=== PATIENT | female | born 1985 | race Caucasian/White ===

== ENCOUNTER 2021-01-13 10:02 | Emergency (ER) | payer BC, SELFPAY ==
--- NOTE | ~2021-01-13 | XR_ITS ---
EXAMINATION: XR finger 1st RT min 2V EXAM DATE: 01/13/2021 10:17 INDICATION: shut in car door last night . TECHNIQUE: Right 1st finger frontal, lateral and oblique projections obtained and reviewed. There is no prior study for comparison. FINDINGS: There are no acute right 1st finger fractures or dislocations identified. There is no subc utaneous gas. The soft tissue is unremarkable. There are no radiopaque foreign bodies. IMPRESSION: No acute osseous findings. Reviewed, dictated and finalized at location [facility]. IMPRESSION: No acute osseous findings.
[2021-01-13 10:10] VITALS: BP 132/85; PULSE 82; RESP 16; TEMP 37; O2SAT 100
--- NOTE | 2021-01-13 10:12 | ED.UPPEXIN ---
HPI - Extremity Injury (Upper) General Chief Complaint: Extremity Injury, Upper Stated Complaint: INJURED FINGER Time Seen by Provider: 01/13/21 10:13 Source: patient, family and RN notes reviewed Limitations: no limitations History of Present Illness HPI narrative: 35-year-old female accompanied by [facility] with complaints of injury to her right thumb yesterday evening. She accidentally shut her thumb in the car door with some swelling noted to the distal aspect of her right thumb. some bruising noted to nail bed but not extensive.Patient has full movement of her right thumb with no tingling or numbness of her right thumb or other fingers, strong right radial pulse. Related Data Home Medications Medication Instructions Recorded Confirmed No Home Medications 01/13/21 01/13/21 Allergies Allergy/AdvReac Type Severity Reaction Status Date / Time No Known Allergies Allergy Unverified 08/31/11 15:39 Review of Systems Review of Systems: CONSTITUTIONAL: Denies fever, chills, or sweats. EYES: Denies visual changes, redness, or discharge. ENT: Denies rhinorrhea, congestion, sore throat, or otalgia. CARDIOVASCULAR: Denies chest pain, palpitations, or edema. RESPIRATORY: Denies cough or dyspnea. GASTROINTESTINAL: Denies abdominal pain, nausea, vomiting, or diarrhea. GENITOURINARY: Denies dysuria or hematuria. SKIN: Denies rash or itching. MUSCULOSKELETAL: Denies back pain, pain to right thumb from injury, or myalgia. NEUROLOGIC: Denies headache, numbness, or weakness. PSYCHIATRIC: Denies anxiety or depression. All systems reviewed & are unremarkable except as noted in HPI and below PMFSH Comments At time of signature, agree with nursing past medical, surgical, social and family history. There is no relevant family history pertinent to the presenting complaint Exam Narrative: GENERAL: Well-appearing, well-nourished, and in no acute distress. HEAD: Normocephalic, atraumatic. EYES: PERRLA and EOMI. ENT: Nares clear, no rhinorrhea or epistaxis. Mucous membranes moist. NECK: Supple.no lymphadenopathy CHEST: Clear to auscultation. No respiratory distress.SAO2 100% on room air HEART: Regular rate and rhythm. No murmur heard. Normal peripheral pulses. ABDOMEN: Soft, nontender, nondistended, normal active bowel sounds. EXTREMITIES: Normal range of motion. No edema,exception noted to right thumb which is painful with some mild swelling distal thumb region, some bruising on nail bed but not extensive.patyient has full mobility sensation and circulation to right hand SKIN: Warm, dry, no rash. NEURO: No focal deficits. Alert and oriented x3. Course Vital Signs Vital signs: Vital Signs Temperature 37.0 C 01/13/21 10:10 Pulse Rate 82 01/13/21 10:10 Respiratory Rate 16 01/13/21 10:10 Blood Pressure 132/85 01/13/21 10:10 Pulse Oximetry 100 01/13/21 10:10 Temperature 37.0 C 01/13/21 10:10 Pulse Rate 82 01/13/21 10:10 Respiratory Rate 16 01/13/21 10:10 Blood Pressure 132/85 01/13/21 10:10 Pulse Oximetry 100 01/13/21 10:10 MDM - Extremity Injury (Upper) Differential Diagnosis Differential diagnosis: Likely finger sprain and other (thumb injury, right thumb contusion,) Medical Records Attestation: I reviewed the patient's medical records. Imaging Data Attestation: I personally reviewed and interpreted this imaging study as follows: My impression: no fracture noted Radiologist[facility] [place] [address] [phone] XRay ReportSigned Patient: Kita Cevallos LDOB: 1985MR#: [id number]/Sex: 35 / FAcct:[id number]: EXPGLEN ADM Date: 01/13/21Attending Dr: Ordering Physician: Supriya Al APN Date of Service: 01/13/21 Procedure(s): XR finger 1st RT min 2V Accession Number(s): [id number] cc: Amadeo, Ham MAK (Khengwai); Supriya Al APN~ EXAMINATION: XR finger 1st RT min 2V EXAM DATE:
== END 2021-01-13 10:40 | disposition home or self-care (01) ==
PROVIDERS: Emergency Provider Registered Nurse; PCP Internal Medicine
DX: S60.011A Contusion of right thumb without damage to nail, initial encounter (principal); W23.0XXA Caught, crushed, jammed, or pinched between moving objects, initial encounter
CPT/HCPCS: 73140; 99203; G0463

== ENCOUNTER 2022-11-18 12:49 | Emergency (ER) | payer BC, SELFPAY ==
--- NOTE | ~2022-11-18 | CT_ITS ---
CT of the Abdomen and Pelvis: Indication: Abdominal pain Technique: 2.5 mm axial scans were obtained through the abdomen and pelvis following intravenous adm inistration of 100 cc of Omnipaque 350. Dose reduction technique was used on this scan by utilizing a utomated exposure control and iterative reconstruction technique. The dose-length product (DLP) was 2 31.58 mGy-cm. Findings: Scans through the lung bases are unremarkable. The liver, spleen, pancreas, gallbladder, adrenals and kidneys are within normal limits. No evidence of aortic aneurysm. No lymphadenopathy. No bowel obstruction or bowel wall thickening. Appendix not clearly visualized. Images through the pelvis were performed. Urinary bladder unremarkable. No definite adnexal mass seen . Small amount of pelvic ascites. Impression: Small amount of pelvic ascites, nonspecific. No other definite abnormality identified. Clinical corre lation is required as the cause and/or clinical significance of this fluid. Reviewed, dictated and finalized at [facility]. Impression: Small amount of pelvic ascites, nonspecific. No other definite abnormality iden tified. Clinical correlation is required as the cause and/or clinical significa nce of this fluid.
--- NOTE | ~2022-11-18 | US_ITS ---
US pelvic complete DATE: 11/18/2022 15:52 INDICATION: Lower abdominal pain. Rule out torsion. TECHNIQUE: Real-time imaging via transabdominal approach, color flow imaging COMPARISON: 11/18/2022 CT abdomen pelvis FINDINGS: There is measures approximately 10.2 cm height, 4 cm AP dimension. The central endometrial echo complex measures approximately 7.8 mm AP dimension. Right ovary measures 2.5 x 2.0 x 1.6 cm, with vascular flow. Left ovary measures 2.9 x 2.3 x 2.1 cm, with vascular flow. Bilateral ovarian follicles are noted. There is a septated approximately 1.6 x 1.[address] No ovarian torsion is detected. No abnormal free pelvic fluid collection is noted. IMPRESSION: No ovarian torsion is detected Reviewed, dictated and finalized at [facility]. Reviewed, dictated and finalized at [facility].
[2022-11-18 13:01] VITALS: BP 144/89; PULSE 89; RESP 18; TEMP 36.3; O2SAT 100
[2022-11-18 13:31] LABS: Basophils Percent Auto 0.8 % (0.2-1.2); Eosinophils Absolute Auto 0.1 K/mm3 (0-0.3); Eosinophils Percent Auto 2.1 % (0-4.4); Hematocrit 38.6 % (37.0-47.0); Hemoglobin 12.7 g/dL (12.0-15.0); Immature Granulocyte Absolute 0.01 K/mm3 (0.00-0.031); Immature Granulocyte Percent A 0.2 % (0-0.5); Lymphocytes Absolute Auto 0.95 K/mm3 (0.9-3.2); Lymphocytes Percent Auto 19.6 % (18.3-44.2); Mean Corpuscular HGB Conc 32.9 g/dl (32-36); Mean Corpuscular Hemoglobin 31.4 pg (26-34); Mean Corpuscular Volume 95.3 fl (80-100); Mean Platelet Volume 9.5 fl (7.4-10.4); Monocytes Absolute Auto 0.3 K/mm3 (0.1-0.6); Neutrophils Absolute Auto 3.4 K/mm3 (1.3-6.7); Neutrophils Percent Auto 70.3 % (45.5-73.1); Platelet Count Result 223 k/mm3 (150-375); Red Blood Count 4.05 M/mm3 (4.2-5.4); Red Cell Distribution Width 12.6 % (11.5-14.5); White Blood Count 4.9 K/mm3 (4.5-10.0)
[2022-11-18 13:32] LABS: Appearance Urine Clear (Clear); Bilirubin Urine Negative (Negative); Blood Urine Negative (Negative); Color Urine Yellow (Yellow); Glucose Urine UA Negative (Negative); Ketones Urine Trace mg/dL (Negative); Leukocyte Esterase Ur Negative LEU/UL (Negative); Nitrate Urine Negative (Negative); Protein Urine Negative (Negative); Specific Grav Ur 1.012 (1.001-1.035); Urobilinogen Urine 0.2 mg/dL (<2.0); pH Urine 5.5 (5.0-9.0)
--- NOTE | 2022-11-18 13:32 | ED.GENADULT ---
HPI - General Adult General Chief complaint: Abdominal Pain <NOELLE Bills Last Filed: 11/18/22 17:58> Stated complaint: lower abdominal pain <NOELLE Bills Last Filed: 11/18/22 17:58> Time Seen by Provider: 11/18/22 13:10 <Farhat Watson PA-C - Last Filed: 11/18/22 17:58> Source: patient <NOELLE Bills Last Filed: 11/18/22 17:58> Mode of arrival: ambulatory <NOELLE Bills Last Filed: 11/18/22 17:58> Limitations: no limitations <NOELLE Bills Last Filed: 11/18/22 17:58> History of Present Illness HPI narrative: This is a 37-year-old female who presents to the ED with chief complaint of sudden onset abdominal pain this morning around 11:00 AM. She reports that she was able to eat breakfast this morning with no problems. She was sitting on the couch when this started today. She states the pain is mainly in the lower abdomen and radiates somewhat to the left side/flank. Denies any injuries. Denies any history of this pain in the past. She denies nausea or vomiting. Denies urinary symptoms or problems with bowel movements. Denies chest pain, back pain. <Farhat Watson PA-C - Last Filed: 11/18/22 17:58> Related Data Allergies/adverse reactions: Allergies Allergy/AdvReac Type Severity Reaction Status Date / Time No Known Allergies Allergy Verified 11/18/22 13:28 <Farhat Watson PA-C - Last Filed: 11/18/22 17:58> Exam Narrative: GENERAL: Well-appearing, well-nourished, and in no acute distress. HEAD: Normocephalic, atraumatic. EYES: PERRLA and EOMI. ENT: Nares clear, no rhinorrhea or epistaxis. Mucous membranes moist. Oropharynx without tonsillar hypertrophy exudate or other lesions. NECK: Supple. No adenopathy or masses. CHEST: No respiratory distress. Clear to auscultation. No wheezes rales or rhonchi HEART: Regular rate and rhythm. No murmur heard. Normal peripheral pulses. ABDOMEN: Diastases recti present. Aortic pulsations prominent. She is tender throughout the right lower quadrant suprapubic area and left lower quadrant. Soft, nondistended, normal active bowel sounds. MSK: Normal range of motion. No edema. SKIN: Warm, dry, no rash. NEURO: Alert and oriented x3. No focal deficits. Neurovascularly intact distally. PSYCH: Normal mood and affect. <Farhat Watson PA-C - Last Filed: 11/18/22 17:58> Course [employer]/PA Physician Supervision This visit was performed by both a physician and an APC. I performed all aspects of the MDM as documented. <Keny Bocanegra MD - Last Filed: 11/18/22 21:17> Vital Signs Vital signs: Vital Signs Temperature 97.4 F L 11/18/22 13:01 Pulse Rate 89 11/18/22 13:01 Respiratory Rate 18 11/18/22 13:01 Blood Pressure 144/89 H 11/18/22 13:01 Pulse Oximetry 100 11/18/22 13:01 Oxygen Delivery Room Air 11/18/22 13:01 Temperature 97.4 F L 11/18/22 13:01 Pulse Rate 89 11/18/22 13:01 Respiratory Rate 18 11/18/22 13:01 Blood Pressure 144/89 H 11/18/22 13:01 Pulse Oximetry 100 11/18/22 13:01 Oxygen Delivery Room Air 11/18/22 13:01 <Farhat Watson PA-C - Last Filed: 11/18/22 17:58> Vital Signs Temperature 97.4 F L 11/18/22 13:01 Pulse Rate 89 11/18/22 13:01 Respiratory Rate 18 11/18/22 13:01 Blood Pressure 144/89 H 11/18/22 13:01 Pulse Oximetry 100 11/18/22 13:01 Oxygen Delivery Room Air 11/18/22 13:01 Temperature 97.4 F L 11/18/22 13:01 Pulse Rate 89 11/18/22 13:01 Respiratory Rate 18 11/18/22 13:01 Blood Pressure 144/89 H 11/18/22 13:01 Pulse Oximetry 100 11/18/22 13:01 Oxygen Delivery Room Air 11/18/22 13:01 <Keny Bocanegra MD - Last Filed: 11/18/22 21:17> Medical Decision Making MDM Narrative Medical decision making narrative: This is a 37-year-old female presents to the ED with chief complaint of lower abdominal pain with sudden onset this morning. Pain is resolving on its own afte
[2022-11-18 13:36] LABS: Add Urine Microscopic? NO
[2022-11-18 13:41] LABS: Alanine Aminotransferase 21 U/L (6-35); Albumin Level 4.1 g/dL (3.5-5.1); Alkaline Phosphatase 46 U/L (38-126); Anion Gap 8 mmol/L (8-16); Aspartate Amino Transferase 26 U/L (14-36); Bilirubin,Total 0.6 mg/dL (0.2-1.3); Blood Urea Nitrogen 13 mg/dL (7-17); Calcium 8.8 mg/dL (8.4-10.2); Carbon Dioxide 26 mmol/L (22-30); Chloride 104 mmol/L (98-107); Estimated CRCL calculation 81 ml/min; Estimated Glomerular Filt Rate > 60; Glucose 92 mg/dL (65-110); Potassium 3.4 mmol/L (3.4-5.0); Sodium 138 mmol/L (137-145)
== END 2022-11-18 16:32 | disposition home or self-care (01) ==
PROVIDERS: Emergency Provider Physician Assistant; PCP Internal Medicine
DX: R10.30 Lower abdominal pain, unspecified (principal)
CPT/HCPCS: 36415; 74177; 76856; 80053; 81003; 81025; 85025; 99284; Q9967

== ENCOUNTER 2023-08-30 06:12 | Day surgery (SDC) | payer BC, SELFPAY ==
[2023-08-22 12:54] VITALS: BMI 21.8
--- NOTE | 2023-08-22 12:57 | PC.NURSE ---
Report to the Outpatient Waiting Room, entrance under the green pavilion located off [facility], at time 1200 on date 08/30/23. Planned Procedure Time: 1400. Time changes happen often and if your time is changed the preop area will call you the afternoon before. - You and your visitor will be asked to self-screen and do not enter if you have any COVID symptoms. - A mask is optional within the hospital at this time. Patients may have clear liquids (water, carbonated beverages, clear teas, apple juice) until 3 hours prior to surgery with a maximum of 20 ounces. - No food from midnight until time of surgery Take the following medications with a SIP of water the morning of surgery: N/A DO NOT STOP ANY OF YOUR OTHER PRESCRIPTION MEDICATIONS PRIOR TO SURGERY ?EXCEPT THE FOLLOWING Medications to discontinue per physician: N/A Date to take last dose: N/A Please no make-up, nail kazakh, hairspray, perfume, deodorant, or body powder the day of surgery. No jewelry (including any body piercings) or valuables the day of surgery, leave them at home. Please take a shower or bath the night before, or the morning of, surgery with an antibacterial soap. Wear comfortable, loose fitting clothing. - Jewelry must be removed prior to entering the operating room. Rings and piercings that are not removed may be cut off. - The hospital will not accept responsibility for valuables. - Please leave all valuables, including medications, at home the day of surgery. If you are going home after surgery, a licensed lease purchase driver must drive you home. - NO public transportation without another adult if you receive anesthesia. - We recommend that an adult stay with you for 24 hours following discharge. - We also recommend that you do not drive, make important decision, drink alcoholic beverages, or take any drugs that were not prescribed by your health care provider for at least 24 hours after your discharge time. Follow any additional instructions given to you from your surgeon. If you or anyone in your household have experienced Covid symptoms in the past week, please notify your surgeon or the nurse liaison at the phone number below for possible testing. Telephone instructions given to ASHWIN HORN and asked if any additional questions and then verbalized understanding. Patient advised to call surgeon office or pre surgery nurse liaison [phone] if any additional questions.
[2023-08-30 11:20] VITALS: BP 118/91; PULSE 83; RESP 16; TEMP 36.9; O2SAT 100
--- NOTE | 2023-08-30 11:32 | PM.IMHP ---
H&P: HPI History of Present Illness Date/Time: 08/30/23 11:32 Chief Complaint: Heavy periods. Narrative: 37 y/o whose has had a vasectomy. She has monthly menses that are heavy and crampy. She is interested in surgical management of her problem. Review of Systems Review of Systems: All systems reviewed & are unremarkable except as noted in HPI and below PMFSH Surgical History Surgical History History of augmentation mammoplasty History of removal of implants of both breasts Social History Social History Smoking status: Never smoker Alcohol intake: current Alcohol use details: RARE Substance use: never Substance use type: does not use Living arrangements: with family Spiritual care concerns: No Meds Home Medications and Allergies Home Medications Medication Instructions Recorded Confirmed Type No Home Medications 01/13/21 08/30/23 History Allergies Allergy/AdvReac Type Severity Reaction Status Date / Time No Known Allergies Allergy Verified 08/30/23 11:11 Vital Signs Vital Signs - 24 hr 08/30/23 11:20 Temperature 36.9 C Pulse Rate 83 Respiratory Rate 16 Blood Pressure 118/91 H Pulse Oximetry 100 Oxygen Delivery Room Air Exam Const: Orientation/consciousness: patient oriented x3 Other: Well-developed, well-nourished female in no acute distress. Neck: Thyroid: thyroid normal Lymphatic: no lymphadenopathy noted (in neck, axilla or inguinal nodes) Resp: Effort & Inspection: normal respiratory effort Auscultation: clear to auscultation bilaterally Cardio: Rate: regular rate Rhythm: regular rhythm Heart sounds: S1 normal heart sound present and S2 normal heart sound present GI: Other: ABD: Soft, nontender, nondistended. No guarding or rebound tenderness. No hepatosplenomegaly. : General: Yes no CVA tenderness Other: External genitalia: normal female hair distribution, without lesion. Urethral meatus: no lesion, non prolapsed. Bladder: no mass, nontender Vagina: well-estrogenized, without lesion or discharge. No cystocele or rectocele. Cervix: no lesion or discharge. Uterus: small, anteverted, freely mobile, nontender Adnexa: no mass or tenderness. Anus/perineum: no lesions, nontender Back/Spine/Pelvis: Back: no CVA tenderness Skin: General skin exam: normal color and no rashes or lesions noted Neuro: General: patient oriented x3 Extrem: Other: Extremities: nontender with no edema Psych: Mental Status: mental status grossly normal Affect: normal affect Assessment and Plan Assessment and plan (1) Menorrhagia: Code(s): N92.0 - Excessive and frequent menstruation with regular cycle Status: Acute Assessment and Plan: A: Menorrhagia. P: We have reviewed medical as well as surgical treatment options, and she prefers the latter. Specifically, I have offered her a hysteroscopy with dilation and sharp curettage, and endometrial ablation. She understands risks of surgery to include risks of anesthesia, risks of pain, infection, bleeding, blood products, thromboembolic phenomena and damage to adjacent structures such as bowel, bladder, ureters, blood vessels and nerves. She understands all these risks and elects to proceed with surgery.
--- NOTE | 2023-08-30 11:51 | P.PNAN_ITS ---
Anes - Initial Pre Proc Eval Procedure: Operation Date: 08/30/23 13:00 Proposed Procedures p Hysteroscopy Dilation and Curettage with Hodan Endometrial Ablation - Robin Pickard MD Date/Time: 08/30/23 11:51 Surgeon: Robin Pickard MD Pre Op Diagnosis: irregular bleeding Patient Data Age: 38 Gender: F Height: 1.63 m Weight: 56.3 kg Last Vital Signs Temp 36.9 C 08/30/23 11:20 Pulse 83 08/30/23 11:20 Resp 16 08/30/23 11:20 BP 118/91 H 08/30/23 11:20 Pulse Ox 100 08/30/23 11:20 O2 Del Method Room Air 08/30/23 11:20 Allergies Allergy/AdvReac Type Severity Reaction Status Date / Time No Known Allergies Allergy Verified 08/30/23 11:11 Home Medications Medication Instructions Recorded Confirmed Type No Home Medications 01/13/21 08/30/23 History Patient hx anesthesia problems: none Family hx anesthesia problems: none Results Review: All pre-operative results and documents have been reviewed as part of the pre- operative evaluation. [facility] Surgical History Surgical History History of augmentation mammoplasty History of removal of implants of both breasts Social History Social History Smoking status: Never smoker Alcohol intake: current Alcohol use details: RARE Substance use: never Substance use type: does not use Living arrangements: with family Spiritual care concerns: No Anes - Eval Final PreProcedure Day of Procedure 08/30/23 11:51 Patient weight: normal Heart: regular rate and rhythm Lungs: clear to auscultation Airway: Mallampati scale class II Neurological: alert and oriented Last oral intake: >/= 8 hours ASA classification: I Emergent: no Anesthetic plan: proceed Anesthesia type and monitoring: general GIVS and standard monitoring Results Review: All pre-operative results and documents have been reviewed as part of the pre- operative evaluation. Informed Consent: The patient's anesthetic plan and its attendant risks and benefits were discussed with the patient/family/POA. Questions were solicited and answers provided to the satisfaction of the patient/family/POA.
[2023-08-30] MEDS: LACTATED RINGERS 1,000 ML 30 ML IV CONT (12:12)
--- NOTE | 2023-08-30 12:22 | WPDHPUPDATE1 ---
History and Physical Update Update Date/Time: 08/30/23 12:22 History and Physical has been reviewed, including an updated exam of the patient. There are NO changes in the patient's condition. Risks, benefits, and alternatives have been discussed and questions answered. Patient agrees to proceed with procedure.
[2023-08-30] MEDS: SCOPOLAMINE 1 MG PATCH 1 PATCH TRANSDERM (12:24)
[2023-08-30] MEDS: ACETAMINOPHEN 500 MG TABLET 1000 MG PO (12:24)
[2023-08-30] MEDS: LIDOCAINE HCL 1% LOCAL INJ 20 ML VIAL INFILTRATE (13:43)
--- NOTE | 2023-08-30 14:01 | W.PM.PROC2 ---
Procedure Note - Detailed Date of Procedure 08/30/23 Pre-op Diagnosis Menorrhagia Post-op Diagnosis Same Procedure Performed Hysteroscopy Dilation and sharp curettage Endometrial ablation Surgeon Robin Pickard MD Anesthesia MAC and Local (1% lidocaine) Findings The endometrial cavity was unremarkable. Both tubal ostia were seen. Description of Procedure The patient was taken to the operating room where she was prepared and draped in the usual sterile fashion in the dorsal lithotomy position. The bladder was drained with a red rubber catheter. A sterile speculum was placed into the vagina. The anterior lip of the cervix was grasped with single-tooth tenaculum. Ten mL of 1% lidocaine was administered in a paracervical block. The cervix was then gently dilated using Hegar dilators until a 7 mm dilator could be passed. Hysteroscopy was performed using sterile saline as a distention medium. Findings are as noted above. Sharp curettage was then performed, and endometrial curettings were collected on a Telfa pad and passed off to be sent to pathology. Finally, the the Hodan device was advanced and endometrial ablation commenced without difficulty. The device was withdrawn and a second look was taken using the hysteroscope. Excellent coverage of the endometrial cavity was noted. The tenaculum was removed. Hemostasis was excellent. Sponge, lap, needle and instrument counts were correct. The patient was awakened and taken to the recovery room in stable condition. I was present and scrubbed through the entire procedure. Implants None Estimated Blood Loss 5 Drains No Packing No Pathology Yes (Endometrial curettings) Complications None Condition Stable Disposition PACU
[2023-08-30 14:04] VITALS: BP 106/88; PULSE 74; RESP 20
[2023-08-30 14:30] VITALS: BP 104/60; PULSE 73; RESP 20
[2023-08-30 15:00] VITALS: BP 115/72; PULSE 69; RESP 20
[2023-08-30 15:15] VITALS: BP 109/74; PULSE 70; RESP 20
[2023-08-30 15:37] LABS: HIV 1/2 Ab P24 Ag Result Negative (Negative); Hepatitis C Virus Antibody Negative (Negative)
[2023-08-30 16:17] LABS: Hepatitis B Surface Antigen Negative (Negative)
== END 2023-08-30 15:18 | disposition home or self-care (01) ==
PROVIDERS: PCP Internal Medicine; Visit Provider Obstetrics & Gynecology
PROC: 0U5B8ZZ Destruction of Endometrium, Via Natural or Artificial Opening Endoscopic (ICD-10-PCS; CPT 58563; principal; 2023-08-30 13:00)
DX: N92.0 Excessive and frequent menstruation with regular cycle (principal); N84.0 Polyp of corpus uteri; Z11.4 Encounter for screening for human immunodeficiency virus [HIV]
CPT/HCPCS: 58563; 36415; 86703; 86803; 87340; 88305; A9270; G0432; J1100; J2250; J2405; J2704; J3010; J7120